=== PATIENT | female | born 1950 | race Caucasian/White ===

== ENCOUNTER → 2016-07-12 | Outpatient (CLI) | payer MEDICAID ==
[~2016-07-12] VITALS: Ht 167.6 cm; Wt 97.1 kg
[~2016-07-12] MED LIST: ADENOSINE IV STA; CLON0.2T PO; GABA300C8 PO; GIVE UN DILUTED IV STA; HYDR25TA4 PO; INSLANTI SC; INSU0.5M41; INSU70IN9 SC; LORA-352 PO; LOVA20TA4 PO; OMEP20CA5 PO; [UNRECOGNIZED DRUG - CODE] PO
== END ==
LOC: HDHVI->DVH 08:58
PROVIDERS: ATTEND Internal Medicine Cardiovascular Disease
DX: R07.9 Chest pain, unspecified (principal); I25.2 Old myocardial infarction; I10 Essential (primary) hypertension; E11.9 Type 2 diabetes mellitus without complications; E78.00 Pure hypercholesterolemia, unspecified; Z82.49 Family history of ischemic heart disease and other diseases of the circulatory system
CPT/HCPCS: 78452; 93005; 93306; 96374; 96375; A9500; J0153